=== PATIENT | female | born 1985 | race Caucasian/White ===

== ENCOUNTER 2017-07-20 19:53 | Emergency (ER) | payer MEDICAID ==
[2017-07-20 20:00] VITALS: BP 120/98
--- NOTE | 2017-07-20 20:16 | EDPHY ---
H & P Time Seen by Provider: 07/20/17 20:06 HPI/ROS: Chief complaint: Anxiety History of present illness: This is a 32-year-old female who presents to the emergency department stating she feels like she is suffering from anxiety. She feels she may be possibly suffering from PTSD. 4 days ago her dog was attacked by another dog. She witness this. She attempted to break it up and sustained multiple abrasions to her fingers. She has been taking her dog to the vet for care. She has been extremely upset. She reports the vet suggested she get evaluated for her anxiety. She is wondering if Xanax might be an appropriate medication for her. She states the wounds on her hands were cleaned. There is no report of abnormal coolness or paresthesias in the fingers. She is moving them without difficulty. Her tetanus is up-to-date. No other complaints. Smoking Status: Never smoked Physical Exam: General Appearance: Alert and no distress. Eyes: Pupils equal and round no injection. Respiratory: Chest is non tender, lungs are clear to auscultation. Cardiovascular: Regular rate and rhythm. Radial pulses 2+. Capillary refill brisk in all digits of the both hands. Gastrointestinal: Abdomen is soft and non tender, no masses, bowel sounds normal. Musculoskeletal: Patient has full range of motion and strength all erickson all joints all digits of both hands the wrists and elbows. Skin: There are a few abrasions to her fingers. They appear to be healing well. No evidence of infections. Constitutional: Initial Vital Signs Temperature (C) 36.7 C 07/20/17 19:57 Heart Rate 113 H 07/20/17 19:57 Respiratory Rate 18 07/20/17 19:57 Blood Pressure 120/98 H 07/20/17 19:57 O2 Sat (%) 98 07/20/17 19:57 O2 Delivery Mode Room Air Allergies/Adverse Reactions: Penicillins Allergy (Verified 07/20/17 19:56) Home Medications: Medication Instructions Recorded ALPRAZolam [Xanax 0.5 MG (*)] 0.5 mg PO BID #6 tab 07/20/17 [place] Thyroid 07/20/17 Levothyroxine 07/20/17 MDM/Departure - [facility] ED Course/Re-evaluation: Patient seen under the supervision of my secondary supervising physician Dr. Bob Flores. Patient presents reporting anxiety after seeing her dog attacked 4 days ago. She is having trouble sleeping. She has mild wounds to the hands. It has been 4 days. They are neurovascularly intact with good musculoskeletal control. Her tetanus is up-to-date. I do not believe she needs to be on antibiotics at this time. I will provide her with a short course of Xanax. However I have discussed the importance of following up with a mental health worker to help her deal with the anxiety. She is given referral information. Home care is discussed. Return precautions are given. Patient voiced understanding and agreement with plan. Differential Diagnosis: Included but not limited to anxiety, depression - Depart Disposition: Home, Routine, Self-Care Clinical Impression: Anxiety, Animal bites Condition: Good Instructions: Alprazolam (By mouth), Animal Bite (ED), Anxiety (ED), Acute Wounds (ED) Additional Instructions: Follow-up with a primary care doctor on a mental health specialist for continued care You can use Xanax to help with anxiety and sleep, do not take extra medications , drugs or alcohol with it If symptoms worsen or new symptoms develop return to the emergency room for recheck Prescriptions: ALPRAZolam [Xanax 0.5 MG (*)] 0.5 mg PO BID #6 tab Referrals: NONE *PRIMARY CARE P,. [Primary Care Provider] - As per Instructions [facility],. [Clinic] - As per Instructions [facility] [Clinic] - As per Instructions
== END 2017-07-20 20:31 | disposition home or self-care (01) ==
DX: F41.9 Anxiety disorder, unspecified (principal); S60.511A Abrasion of right hand, initial encounter; S60.512A Abrasion of left hand, initial encounter; W54.0XXA Bitten by dog, initial encounter; Y99.8 Other external cause status; Y93.89 Activity, other specified